=== PATIENT | male | born 1950 | race Asian ===

== ENCOUNTER 2017-09-10 17:00 | Emergency (ER) | payer MEDICARE ==
[~2017-09-10] VITALS: Ht 180.3 cm; Wt 99.8 kg
[2017-09-10 17:47] LABS: BASOPHILS % 0.4 % (0.0-1.0); EOSINOPHILS % 0.2 % (0.0-6.0); HEMATOCRIT 39.5 % (38.2-49.6); HEMOGLOBIN 13.6 g/dL (14.0-18.0); LYMPHOCYTES # (AUTO) 0.5 (1.0-3.2); LYMPHOCYTES % 4.9 % (18.0-39.1); MEAN CORPUSCULAR HEMOGLOBIN 30.2 pg (28-32); MEAN CORPUSCULAR HGB CONC 34.4 g/dL (31-35); MEAN CORPUSCULAR VOLUME 87.8 fL (81-99); MONOCYTES # (AUTO) 0.3 (0.2-0.8); MONOCYTES % 2.8 % (4.4-11.3); NEUTROPHILS # (AUTO) 9.8 (2.1-6.9); NEUTROPHILS % 91.2 % (38.7-80.0); PLATELET COUNT 207 x10e3/uL (140-360); RED CELL DISTRIBUTION WIDTH 12.3 % (11.7-14.4)
[2017-09-10 17:58] LABS: CLARITY,URINE CLOUDY (CLEAR); COLOR,URINE AMBER (YELLOW); KETONES,URINE 2+ (NEGATIVE); LEUKOCYTE ESTERASE ,URINE 2+ (NEGATIVE); NITRITE,URINE NEGATIVE (NEGATIVE); URINE UROBILINOGEN 1 mg/dL (0.2 - 1)
[2017-09-10 18:01] LABS: ALBUMIN 3.8 g/dL (3.5-5.0); ANION GAP 14.9 mmol/L (8-16); CALCIUM 8.9 mg/dL (8.4-10.2); CREATININE, SERUM 1.21 mg/dL (0.72-1.25); POTASSIUM 3.9 mmol/L (3.5-5.1)
[2017-09-10 18:06] LABS: BILIRUBIN,URINE 1+ (NEGATIVE); PROTEIN,URINE DIPSTICK 2+ (NEGATIVE)
--- NOTE | 2017-09-10 18:11 | Diagnostic Imaging Report ---
PROCEDURE: Frontal and lateral views of the chest. COMPARISON: None. INDICATIONS: FEVER, CHILLS FINDINGS: Lines/tubes: None. Lungs: The lungs are well inflated and clear. There is no evidence of pneumonia or pulmonary edema. Pleura: There is no pleural effusion or pneumothorax. Heart and mediastinum: The heart and the mediastinum are normal. Bones: No acute bony abnormality. Degenerative changes of the thoracic spine. IMPRESSION: 1. No acute cardiopulmonary disease. Tita Merritt M.D. Dictated by: Tita Merritt M.D. on 09/10/2017 at 18:19 Electronically approved by: Tita Merritt M.D. on 09/10/2017 at 18:19
[2017-09-10 18:14] LABS: RBC,URINE >50 /HPF (0-5)
[2017-09-10] MEDS ORDERED: CEFTRIAXONE SOD 1 GM VIAL IV STA (23:36)
[2017-09-10] MEDS ORDERED: SODIUM CHLORIDE 0.9% 1000ML 1,000 ML IV ONE (23:45)
[2017-09-10] MEDS ORDERED: ACETAMINOPHEN 325 MG TAB PO ONE (23:45)
[2017-09-11] MEDS ORDERED: IBUPROFEN 600 MG TAB PO STA (00:37)
[2017-09-11 00:54] VITALS: BP 161/89
== END 2017-09-11 01:32 | disposition short-term general hospital (02) ==
LOC: ER 17:00
DX: R50.9 Fever, unspecified (principal); N41.0 Acute prostatitis; N30.91 Cystitis, unspecified with hematuria; I10 Essential (primary) hypertension; E11.9 Type 2 diabetes mellitus without complications
CPT/HCPCS: 36415; 71020; 80053; 81001; 83605; 85025; 87040; 87086; 87400; 93005; 99284; J0696; J7030

== ENCOUNTER 2022-12-02 17:34 | Emergency (ER) | payer MEDICARE ==
[~2022-12-02] VITALS: Ht 180.3 cm; Wt 99.8 kg
[2022-12-02 18:37] LABS: BASOPHILS # (AUTO) 0.1 (0.0-0.1); BASOPHILS % 0.9 % (0.0-1.0); EOSINOPHILS # (AUTO) 0.2 (0.0-0.4); EOSINOPHILS % 2.8 % (0.0-6.0); HEMATOCRIT 36.5 % (38.2-49.6); HEMOGLOBIN 12.3 g/dL (14.0-18.0); LYMPHOCYTES # (AUTO) 2.2 (1.0-3.2); LYMPHOCYTES % 31.9 % (18.0-39.1); MEAN CORPUSCULAR HEMOGLOBIN 30.4 pg (28-32); MEAN CORPUSCULAR HGB CONC 33.7 g/dL (31-35); MEAN CORPUSCULAR VOLUME 90.1 fL (81-99); MONOCYTES # (AUTO) 0.9 (0.2-0.8); MONOCYTES % 12.4 % (4.4-11.3); NEUTROPHILS # (AUTO) 3.6 (2.1-6.9); NEUTROPHILS % 51.7 % (38.7-80.0); PLATELET COUNT 288 x10e3/uL (140-360); RED BLOOD COUNT 4.05 x10e6/uL (4.3-5.7); RED CELL DISTRIBUTION WIDTH 12.2 % (11.7-14.4)
[2022-12-02 18:41] LABS: INR 1.16; PROTHROMBIN TIME 15.3 seconds (11.9-14.5)
[2022-12-02 18:42] LABS: PARTIAL THROMBOPLASTIN TIME 32.5 seconds (23.8-35.5)
[2022-12-02 18:52] LABS: ALBUMIN 3.9 g/dL (3.5-5.0); ALBUMIN/GLOBULIN RATIO 1.2 (0.8-2.0); ANION GAP 14.6 mmol/L (8-16); CALCIUM 9.2 mg/dL (8.4-10.2); CREATININE, SERUM 1.14 mg/dL (0.72-1.25); POTASSIUM 4.6 mmol/L (3.5-5.1)
[2022-12-02 18:58] LABS: CREATINE KINASE MB 2.5 ng/mL (0-5.0)
[2022-12-02] MEDS ORDERED: SODIUM CHLORIDE 0.9% 100 ML ONE (19:54)
[2022-12-02] MEDS ORDERED: IOPAMIDOL 370 MG/ML 100 ML INFUS..BTL INJ ONE (19:54)
== END 2022-12-02 21:15 | disposition home or self-care (01) ==
LOC: ER 17:58
DX: K92.1 Melena (principal); I10 Essential (primary) hypertension; E11.65 Type 2 diabetes mellitus with hyperglycemia; I25.10 Atherosclerotic heart disease of native coronary artery without angina pectoris; E78.5 Hyperlipidemia, unspecified; R94.31 Abnormal electrocardiogram [ECG] [EKG]
CPT/HCPCS: 36415; 71046; 74174; 80053; 82550; 82553; 83690; 84484; 85025; 85610; 85730; 93005; 99284; J7050; Q9967

== ENCOUNTER 2023-01-25 15:46 | Emergency (ER) | payer MEDICARE ==
[~2023-01-25] VITALS: Ht 180.3 cm; Wt 99.8 kg
[2023-01-25] MEDS ORDERED: DILTIAZEM HCL 5 MG/ML 5 ML VIAL IV STA (17:10)
[2023-01-25 17:26] LABS: BASOPHILS % 0.4 % (0.0-1.0); EOSINOPHILS # (AUTO) 0.1 (0.0-0.4); EOSINOPHILS % 0.9 % (0.0-6.0); HEMATOCRIT 35.8 % (38.2-49.6); HEMOGLOBIN 12.9 g/dL (14.0-18.0); LYMPHOCYTES # (AUTO) 2.1 (1.0-3.2); LYMPHOCYTES % 20.5 % (18.0-39.1); MEAN CORPUSCULAR HEMOGLOBIN 30.7 pg (28-32); MEAN CORPUSCULAR VOLUME 85.2 fL (81-99); MONOCYTES % 9.1 % (4.4-11.3); NEUTROPHILS # (AUTO) 7.2 (2.1-6.9); NEUTROPHILS % 68.8 % (38.7-80.0); PLATELET COUNT 301 x10e3/uL (140-360); RED CELL DISTRIBUTION WIDTH 11.1 % (11.7-14.4)
[2023-01-25 17:35] LABS: INR 1.3; PARTIAL THROMBOPLASTIN TIME 32.9 seconds (23.8-35.5); PROTHROMBIN TIME 16.7 seconds (11.9-14.5)
[2023-01-25] MEDS: ASPIRIN 81 MG CHEW TAB PO ONE ×2 (17:36→18:09)
[2023-01-25 17:43] LABS: ALBUMIN 4.1 g/dL (3.5-5.0); ALBUMIN/GLOBULIN RATIO 1.3 (0.8-2.0); ANION GAP 13.2 mmol/L (8-16); CREATININE, SERUM 0.96 mg/dL (0.72-1.25); POTASSIUM 4.2 mmol/L (3.5-5.1)
[2023-01-25] MEDS ORDERED: METOPROLOL TARTRATE 25 MG TAB PO ONE (18:15)
[2023-01-25 18:37] LABS: CREATINE KINASE MB 2.9 ng/mL (0-5.0)
[2023-01-25] MEDS ORDERED: AZITHROMYCIN250 MG PO (19:04)
[2023-01-25] MEDS ORDERED: BENZONATATE200 MG PO (19:09)
[2023-01-25 20:03] VITALS: BP 149/92; PULSE 71; O2SAT 100
== END 2023-01-25 19:20 | disposition home or self-care (01) ==
LOC: ER 16:16
DX: R05.9 Cough, unspecified (principal); J40 Bronchitis, not specified as acute or chronic; I48.20 Chronic atrial fibrillation, unspecified; Z20.822 Contact with and (suspected) exposure to COVID-19; R94.31 Abnormal electrocardiogram [ECG] [EKG]
CPT/HCPCS: 36415; 71045; 80053; 82550; 82553; 83880; 84484; 85025; 85610; 85730; 93005; 94760; 99284; U0002

== ENCOUNTER 2024-06-23 19:44 | Emergency (ER) | payer MEDICARE ==
[~2024-06-23] VITALS: Ht 180.3 cm; Wt 99.8 kg
[~2024-06-23 19:44] MED LIST: AZITHROMYCIN250 MG PO; BENZONATATE200 MG PO
[2024-06-23 19:52] VITALS: TEMP 98.7
[2024-06-23 20:22] LABS: BASOPHILS % 0.6 % (0.0-1.0); EOSINOPHILS # (AUTO) 0.2 (0.0-0.4); EOSINOPHILS % 2.5 % (0.0-6.0); HEMATOCRIT 37.3 % (38.2-49.6); HEMOGLOBIN 12.3 g/dL (14.0-18.0); LYMPHOCYTES # (AUTO) 1.7 (1.0-3.2); LYMPHOCYTES % 24.7 % (18.0-39.1); MEAN CORPUSCULAR HEMOGLOBIN 30.1 pg (28-32); MEAN CORPUSCULAR VOLUME 91.4 fL (81-99); MONOCYTES # (AUTO) 0.7 (0.2-0.8); MONOCYTES % 10.9 % (4.4-11.3); NEUTROPHILS # (AUTO) 4.1 (2.1-6.9); PLATELET COUNT 276 x10e3/uL (140-360); RED BLOOD COUNT 4.08 x10e6/uL (4.3-5.7); RED CELL DISTRIBUTION WIDTH 12.1 % (11.7-14.4); WHITE BLOOD COUNT 6.79 x10e3/uL (4.8-10.8)
[2024-06-23] MEDS: KETOROLAC TROMETHAMINE 30 MG/ML VIAL IV STA (20:27)
[2024-06-23 20:39] LABS: ALBUMIN/GLOBULIN RATIO 1.2 (0.8-2.0); ANION GAP 13.9 mmol/L (8-16); BILIRUBIN,TOTAL 0.6 mg/dL (0.2-1.2); CALCIUM 9.2 mg/dL (8.4-10.2); CREATININE, SERUM 1.15 mg/dL (0.72-1.25); POTASSIUM 4.9 mmol/L (3.5-5.1); TOTAL PROTEIN 7.3 g/dL (6.5-8.1)
[2024-06-23 21:45] VITALS: PULSE 52; RESP 16; O2SAT 99
[2024-06-23] MEDS ORDERED: METHOCARBAMOL750 MG PO (21:45)
[2024-06-23] MEDS: METHOCARBAMOL 750 MG TAB PO ONE (22:03)
== END 2024-06-23 22:01 | disposition home or self-care (01) ==
LOC: ER 19:50
DX: M25.512 Pain in left shoulder (principal); M62.838 Other muscle spasm; E78.5 Hyperlipidemia, unspecified; I10 Essential (primary) hypertension; E11.65 Type 2 diabetes mellitus with hyperglycemia; I25.10 Atherosclerotic heart disease of native coronary artery without angina pectoris; R94.31 Abnormal electrocardiogram [ECG] [EKG]
CPT/HCPCS: 36415; 71045; 80053; 84484; 85025; 93005; 99284; J1885

== ENCOUNTER 2025-06-09 17:09 | Emergency (ER) | payer MEDICARE ==
[~2025-06-09] VITALS: Ht 180.3 cm; Wt 104.3 kg
[~2025-06-09 17:09] MED LIST changes: +METHOCARBAMOL750 MG PO
[2025-06-09 17:58] VITALS: TEMP 98.7
[2025-06-09] MEDS: TRAMADOL HCL 50 MG TAB PO ONE (20:38)
[2025-06-09] MEDS: METHOCARBAMOL 500 MG TAB PO ONE (20:38)
[2025-06-09] MEDS ORDERED: ULTRAM 50MG50 MG PO (21:46)
[2025-06-09] MEDS ORDERED: METHOCARBAMOL750 MG PO (21:46)
[2025-06-09 22:04] VITALS: TEMP 98.3
[2025-06-09 22:07] VITALS: PULSE 69; RESP 17; O2SAT 100
== END 2025-06-09 22:03 | disposition home or self-care (01) ==
LOC: ER 20:12
DX: M54.50 Low back pain, unspecified (principal); R39.89 Other symptoms and signs involving the genitourinary system; I10 Essential (primary) hypertension; E11.9 Type 2 diabetes mellitus without complications; I48.91 Unspecified atrial fibrillation; E78.5 Hyperlipidemia, unspecified; E03.9 Hypothyroidism, unspecified; I25.10 Atherosclerotic heart disease of native coronary artery without angina pectoris
CPT/HCPCS: 99283